=== PATIENT | male | born 1960 | race Two or more races ===

== ENCOUNTER 2018-07-13 08:01 | Day surgery (SDC) | payer OTHER ==
[~2018-07-13] VITALS: Ht 172.7 cm; Wt 78.0 kg
[2018-07-13] VITALS (11 sets, daily range): BP systolic 117–158; BP diastolic 75–94
[~2018-07-13 08:01] MED LIST: MELATONIN10 M4 PO; ceFAZolin 1gm IVPB IVPB ONE; celeBREX 200mg Cap **SURGERY PATIENTS ONLY ORAL ONE; oxyCONTIN 20mg tab ORAL ONE
[2018-07-13] MEDS ORDERED: oxyCONTIN 20mg tab ORAL ONE (09:45)
[2018-07-13] MEDS ORDERED: celeBREX 200mg Cap **SURGERY PATIENTS ONLY ORAL ONE (09:45)
[2018-07-13] MEDS ORDERED: Kenalog-40 1ml Vial ONE (11:12)
[2018-07-13] MEDS ORDERED: Bupivacaine w/Epi 0.25% 30ml Vial INJ ONE ×2 (11:12→11:13)
[2018-07-13] MEDS ORDERED: EPINEPHrine 1mg/1ml Amp ONE (11:12)
[2018-07-13] MEDS ORDERED: Morphine Sulfate PF 0 ML ONE (11:12)
[2018-07-13] MEDS ORDERED: Ketorolac 30mg Inj ONE (11:12)
[2018-07-13] MEDS ORDERED: Zemuron 50mg/5ml Inj IV ONE (11:25)
[2018-07-13] MEDS ORDERED: Bupivacaine 0.5% Inj 30 ml vial INJ ONE (11:25)
[2018-07-13] MEDS ORDERED: LR 1000ml ONE (11:30)
[2018-07-13] MEDS ORDERED: Midazolam 2mg/2ml Inj ONE (11:31)
[2018-07-13] MEDS ORDERED: fentaNYL 100 mcg/2 mL IV ONE (11:31)
--- NOTE | 2018-07-13 11:42 | Pre-Procedure Note/Attestation ---
Pre-Procedure Note/Attestation Complete Prior to Procedure Planned Procedure: right Procedure Narrative: cherise diagnostic arthroscopy, rc repair, sad Indications for Procedure Pre-Operative Diagnosis: right shoulder internal derangement Attestation I attest that I discussed the nature of the procedure; its benefits; risks and complications; and alternatives (and the risks and benefits of such alternatives ), prior to the procedure, with the patient (or the patient's legal patient service representative). I attest that, if there was a reasonable possibility of needing a blood transfusion, the patient (or the patient's legal patient service representative) was given the [facility] standardized written summary, pursuant to the Luiz Chris Blood Safety Act ([place] Health and Safety Code # 1645, as amended). I attest that I re-evaluated the patient just prior to the surgery and that there has been no change in the patient's H&P, except as documented below: Vidal Dennison MD Jul 13, 2018 11:42
--- NOTE | 2018-07-13 11:42 | Operative Note - PDOC ---
Operative Note Operative Note Pre-op Diagnosis: right shoulder internal derangement Procedure: see op report Post-op Diagnosis: same as pre-op plus Operative Findings: consistent w/pre-op dx studies Anesthesia: MAC Specimen: none Complications: none Condition: stable Estimated Blood Loss: none Implant(s) used?: No Vidal Dennison MD Jul 13, 2018 11:42
[2018-07-13] MEDS ORDERED: Lidocaine 1% MPF 10mg/ml 5ml ONE (12:11)
[2018-07-13] MEDS ORDERED: Propofol 200mg/20ml IV ONE (12:11)
[2018-07-13] MEDS ORDERED: Ropivacaine 5mg/ml Vial 30ml INJ ONE (12:11)
[2018-07-13] MEDS ORDERED: Metoclopramide 10mg/2ml Inj ONE (12:11)
[2018-07-13] MEDS ORDERED: NS Irrig 4000ml IRRIG ONE (12:35)
--- NOTE | 2018-07-13 12:44 | Anethesia Preoperative Eval ---
Anesthesia Pre-op PMH/ROS General Date of Evaluation: Jul 13, 2018 Time of Evaluation: 11:35 Anesthesiologist: ipeter ASA Score: ASA 1 Mallampati Score Class I : Soft palate, uvula, fauces, pillars visible Class II: Soft palate, uvula, fauces visible Class III: Soft palate, base of uvula visible Class IV: Only hard plate visible Mallampati Classification: Class II Surgeon: jane Diagnosis: shoulder pain Surgical Procedure: SAD; shoulder arthroscopy Anesthesia History: none Family History: no anesthesia problems Allergies: Coded Allergies: No Known Allergies (Unverified , 07/13/18) Medications: see eMAR Patient NPO?: Yes NPO Date: Jul 12, 2018 NPO Time: 23:59 Past Medical History Cardiovascular: Denies: HTN, CAD, CO, valve dz, arrhythmia, other Pulmonary: Denies: asthma, COPD, KULDEEP, other Gastrointestinal/Genitourinary: Denies: GERD, CRI, ESRD, other Neurologic/Psychiatric: Denies: dementia, CVA, depression/anxiety, TIA, other HEENT: Denies: cataract (L), cataract (R), glaucoma, AKHIOK (L), AKHIOK (R), other Hematology/Immune: Denies: anemia, DVT, bleeding disorder, other Musculoskeletal/Integumentary: Denies: OA, RA, DJD, DDD, edema, other PSxH Narrative: [facility] surgery Anesthesia Pre-op Phys. Exam Physician Exam Last Vital Signs Date Time Temp Pulse Resp B/P (MAP) Pulse Ox O2 Delivery O2 Flow Rate FiO2 07/13/18 09:57 Room Air 07/13/18 09:48 97.8 60 18 117/81 98 97.8 Constitutional: NAD Neurologic: CN 2-12 intact Cardiovascular: RRR Respiratory: CTA Gastrointestinal: S/NT/ND Airway Exam Mallampati Classification 3 Mallampati Score: Class II MO: full ROM: full Dentures: no upper, no lower Anesthesia Pre-op A/P Studies Pre-op Studies: EKG - sr Risk Assessment & Plan Plan: general / ISB Status Change Before Surgery: No Pre-Antibiotics Drug: ancef Given Within 1 Hr of Incision: Yes Time Given: 12:05 Amy Phipps CRNA Jul 13, 2018 12:44
[2018-07-13] MEDS ORDERED: fentaNYL 100 mcg/2 mL IV PRN (12:45)
[2018-07-13] MEDS ORDERED: Acetaminophen (Non formulary) 100 ML IV ONE (12:45)
[2018-07-13] MEDS ORDERED: Neostigmine 1mg/ml 10ml Inj ONE (12:50)
[2018-07-13] MEDS ORDERED: Glycopyrrolate 0.2mg/ml 1ml Vial ONE (12:50)
--- NOTE | 2018-07-13 15:10 | 48 Hour Post Anesthesia Eval ---
Post Anesthesia Evaluation Procedure: right shouler arthroscopy Date of Evaluation: Jul 13, 2018 Time of Evaluation: 15:10 Blood Pressure Systolic: 134 0: 78 Pulse Rate: 71 Respiratory Rate: 14 Temperature (Fahrenheit): 98.0 O2 Sat by Pulse Oximetry: 98 Airway: patent Nausea: No Vomiting: No Hydration Status: adequate Cardiopulmonary Status: stble Mental Status/LOC: patient returned to baseline Follow-up Care/Observations: na Post-Anesthesia Complications: none Follow-up care needed: N/A Amy Phipps CRNA Jul 13, 2018 15:10
--- NOTE | 2018-07-13 15:10 | Immediate Post-Op Evaluation ---
Immediate Post-Op Evalulation Immediate Post-Op Evalulation Procedure: right shouler arthroscopy Date of Evaluation: Jul 13, 2018 Time of Evaluation: 13:15 IV Fluids: 600 Blood Pressure Systolic: 158 Blood Pressure Diastolic: 79 Pulse Rate: 84 Respiratory Rate: 14 O2 Sat by Pulse Oximetry: 100 Temperature (Fahrenheit): 97.8 Pain Score (1-10): 0 Nausea: No Vomiting: No Complications none Patient Status: awake, reacts, patent Hydration Status: adequate Drug: ancef Given Within 1 Hr of Incision: Yes Time Given: 12:05 Amy Phipps CRNA Jul 13, 2018 15:10
[2018-07-13] MEDS ORDERED: HYDROmorphone 1mg/ml Carpuject SUBQ PRN (18:01)
[2018-07-13] MEDS ORDERED: D5 1/2NS 1,000 ML IV SCH (18:01)
[2018-07-13] MEDS ORDERED: Norco 5mg/325mg tab ORAL PRN (18:01)
[2018-07-13] MEDS ORDERED: Tylenol #3 tab (300mg/30mg) ORAL PRN (18:01)
--- NOTE | 2018-07-14 00:45 | Operative Note - Dictated ---
DATE OF OPERATION: 07/13/2018 PREOPERATIVE DIAGNOSES: 1. Status post right shoulder labral repair. 2. Left shoulder impingement syndrome. 3. Right shoulder bursal-sided rotator cuff tear. POSTOPERATIVE DIAGNOSES: 1. Status post right shoulder labral repair. 2. Left shoulder impingement syndrome. 3. Right shoulder bursal-sided rotator cuff tear. PROCEDURES: 1. Right shoulder arthroscopy. 2. Extensive intraarticular debridement to the left shoulder. 3. Subacromial decompression and bursectomy. 4. Debridement, bursal-sided rotator cuff tear. SURGEON: Vidal Dennison M.D. ANESTHESIA: Interscalene with general. INDICATION FOR PROCEDURE: The patient is a pleasant gentleman, who underwent previous right shoulder arthroscopic labral stabilization procedure. The patient subsequently different pain along the lateral aspect of the right shoulder after an accident. He failed conservative treatment, elected to undergo right shoulder diagnostic arthroscopy. The risks, limitations, expectations, and complications of procedure were discussed in detail. All questions were addressed. DESCRIPTION OF PROCEDURE: Informed consent was obtained, the patient was brought to the operating room. We placed the patient under interscalene anesthesia. The right shoulder was prepped and draped in a sterile manner. Time-out was performed. Inferolateral stab incisions were then made. Trocar was introduced into the glenohumeral joint. There was some chondral damage in the inferior aspect of glenoid. The anterior labrum was detached from the anterior margin of the glenoid. This tissue was was very defieicient in quality. No significant capsule tissue that could be mobilized, therefore a capsular shift procedure was not possible. Therefore, one of the suture which was loose was removed. There is a tear of the superior labrum, which was debrided. The biceps tendon appeared to be in continuity. Undersurface of the rotator cuff was intact. At this point, camera was repositioned in subacromial space. There was hypertophic bursal tissue. Complete bursectomy was performed. Undersurface of acromion was identified and acromioplasty was started from lateral to medial and completed posterior to anterior. Once that was done, the bursectomy was completed. There was partial tear of the bursal sideof rotator cuff was identified and debrided. At this point, the instruments were removed. Portal sites were closed with 3-0 Monocryl sutures. Steri-Strips and sterile dressing were applied. The patient was awoken and taken to recovery room with stable vital signs. ESTIMATED BLOOD LOSS: None. COMPLICATIONS: None. SPECIMENS: None. IMPLANTS: None. Vidal Dennison M.D. DR: AARON JOB#: [id number] CC: PARI
== END 2018-07-13 15:10 | disposition home or self-care (01) ==
LOC: SUR 08:01
DX: M75.41 Impingement syndrome of right shoulder (principal); M75.101 Unspecified rotator cuff tear or rupture of right shoulder, not specified as traumatic; M25.50 Pain in unspecified joint; Z87.891 Personal history of nicotine dependence
CPT/HCPCS: 29823; 29826; J0171; J0690; J2250; J2405; J2704; J2710; J2765; J2795; J3010; J3490; 94003; 94150